=== PATIENT | male | born 1955 | race Caucasian/White ===

== ENCOUNTER 2017-12-30 08:51 | Emergency (ER) | payer MEDICAID ==
[~2017-12-30] VITALS: Ht 170.2 cm; Wt 69.0 kg
[2017-12-30] MEDS ORDERED: IBUPROFEN 600MG TABLET PO ONE (10:45)
[2017-12-30 13:12] VITALS: BP 123/90
== END 2017-12-30 13:25 | disposition home or self-care (01) ==
LOC: ER 09:10
DX: S22.31XA Fracture of one rib, right side, initial encounter for closed fracture (principal); I10 Essential (primary) hypertension; V43.02XA Car driver injured in collision with other type car in nontraffic accident, initial encounter; Y93.89 Activity, other specified; Y92.410 Unspecified street and highway as the place of occurrence of the external cause; Y99.8 Other external cause status
CPT/HCPCS: 71101; 71250; 72040; 73030; 99284; Z7610